=== PATIENT | male | born 1990 | race American Indian/Alaskan Native ===

== ENCOUNTER 2017-01-10 22:06 | Emergency (ER) | payer SELFPAY ==
[~2017-01-10] VITALS: Ht 165.1 cm; Wt 130.0 kg
[2017-01-10 22:10] VITALS: BP 139/67
== END 2017-01-10 22:51 | disposition left against medical advice (07) ==
LOC: ED 22:45
DX: F10.10 Alcohol abuse, uncomplicated (principal); Z53.21 Procedure and treatment not carried out due to patient leaving prior to being seen by health care provider